=== PATIENT | female | born 1995 | race African-American/Black ===

== ENCOUNTER 2022-03-26 12:51 | Emergency (ER) | payer OTHER ==
[~2022-03-26] VITALS: Ht 152.4 cm; Wt 70.7 kg
[2022-03-26] MEDS ORDERED: AMOXICILLIN875 MG PO (13:42)
[2022-03-26 14:00] VITALS: BP 122/72
== END 2022-03-26 14:01 | disposition home or self-care (01) ==
LOC: ED 12:51
DX: J02.0 Streptococcal pharyngitis (principal); Z20.822 Contact with and (suspected) exposure to COVID-19

== ENCOUNTER 2022-05-18 09:53 | Emergency (ER) | payer OTHER ==
[~2022-05-18] VITALS: Ht 152.4 cm; Wt 70.0 kg
[~2022-05-18 09:53] MED LIST: AMOXICILLIN875 MG PO
[2022-05-18 09:59] VITALS: BP 115/63
[2022-05-18] MEDS ORDERED: BIRTH CONTROL (10:02)
[2022-05-18 10:11] LABS: URINE BILIRUBIN - DIPSTICK NEGATIVE (NEGATIVE); URINE BLOOD DIPSTICK LARGE (NEGATIVE); URINE COLOR YELLOW; URINE GLUCOSE - DIPSTICK NEGATIVE (NEGATIVE); URINE KETONE NEGATIVE (NEGATIVE); URINE PROTEIN - DIPSTICK 100 mg/dL (NEG-TRACE); URINE SPECIFIC GRAVITY >=1.030; URINE UROBILINOGEN - DIPSTICK 0.2 E.U./dL (0.2)
[2022-05-18 10:14] LABS: URINE LEUK ESTERASE MODERATE (NEGATIVE); URINE NITRITE - DIPSTICK POSITIVE (Negative)
[2022-05-18 10:17] LABS: URINE RBC 25-50 RBC/hpf (0-5)
[2022-05-18 10:18] LABS: URINE BACTERIA MANY hpf; URINE EPITHELIAL CELLS MODERATE EPI/hpf (0-FEW); URINE WBC 50-100 WBC/hpf (0-5)
[2022-05-18] MEDS ORDERED: NITROFURANTN100 M2 PO (10:25)
[2022-05-18 10:52] VITALS: BP 115/63
== END 2022-05-18 10:52 | disposition home or self-care (01) ==
LOC: ED 09:53
PROVIDERS: Family Medicine
DX: N39.0 Urinary tract infection, site not specified (principal); B96.20 Unspecified Escherichia coli [E. coli] as the cause of diseases classified elsewhere

== ENCOUNTER 2023-04-07 07:44 | Emergency (ER) | payer OTHER ==
[2023-04-07] VITALS (7 sets, daily range): BP systolic 101–120; BP diastolic 58–73
[~2023-04-07] VITALS: Ht 152.4 cm; Wt 84.0 kg
[~2023-04-07 07:44] MED LIST changes: +BIRTH CONTROL; +NITROFURANTN100 M2 PO
[2023-04-07 08:02] LABS: URINE BILIRUBIN - DIPSTICK NEGATIVE (NEGATIVE); URINE BLOOD DIPSTICK SMALL (NEGATIVE); URINE COLOR YELLOW; URINE GLUCOSE - DIPSTICK NEGATIVE (NEGATIVE); URINE KETONE NEGATIVE (NEGATIVE); URINE LEUK ESTERASE TRACE (NEGATIVE); URINE PH 6.5 (4.5-8.0); URINE PROTEIN - DIPSTICK NEGATIVE (NEG-TRACE); URINE SPECIFIC GRAVITY >=1.030
[2023-04-07 08:04] LABS: URINE NITRITE - DIPSTICK NEGATIVE (Negative)
[2023-04-07 08:11] LABS: URINE SQUAMOUS EPITHELIAL CELL FEW EPI/hpf (0-FEW); URINE WBC 0-2 WBC/hpf (0-5)
== END 2023-04-07 09:33 | disposition home or self-care (01) ==
LOC: ED 07:44
PROVIDERS: Family Medicine
DX: R10.2 Pelvic and perineal pain (principal)

== ENCOUNTER 2023-04-18 16:36 | Emergency (ER) | payer OTHER ==
[~2023-04-18] VITALS: Ht 152.4 cm; Wt 80.0 kg
[2023-04-18 17:06] VITALS: BP 111/74
[2023-04-18 17:15] VITALS: BP 116/72
[2023-04-18 17:30] VITALS: BP 126/89
[2023-04-18] MEDS ORDERED: PENICILLN VK500 MG PO (17:42)
[2023-04-18 17:45] VITALS: BP 133/80
[2023-04-18 17:50] VITALS: BP 133/80
== END 2023-04-18 17:55 | disposition home or self-care (01) ==
LOC: ED 16:36
DX: J02.0 Streptococcal pharyngitis (principal); Z20.822 Contact with and (suspected) exposure to COVID-19

== ENCOUNTER 2024-10-01 17:42 | Emergency (ER) | payer SELFPAY ==
[2024-10-01] VITALS (7 sets, daily range): BP systolic 94–107; BP diastolic 52–69
[~2024-10-01] VITALS: Ht 160 cm; Wt 79.3 kg
[~2024-10-01 17:42] MED LIST changes: +PENICILLN VK500 MG PO; +PROTONIX40 MG PO; +ZOFRAN4 MG/TAB PO
[2024-10-01] MEDS ORDERED: KETOROLAC TROMETHAMINE 30 MG/ML SDV IM ONE (18:05)
[2024-10-01] MEDS ORDERED: ONDANSETRON 4 MG/TAB ODT SL ONE (18:05)
[2024-10-01] MEDS ORDERED: OSELTAMIVIR PHOSPHATE 75 MG/TAB CAP PO ONE (18:45)
[2024-10-01] MEDS ORDERED: TAM75CAP PO (19:02)
[2024-10-01] MEDS ORDERED: ZOFRAN4 MG/TAB PO (19:02)
== END 2024-10-01 19:26 | disposition home or self-care (01) | DRG 195 ==
LOC: ED 17:42
DX: J10.1 Influenza due to other identified influenza virus with other respiratory manifestations (principal); Z20.822 Contact with and (suspected) exposure to COVID-19